=== PATIENT | female | born 1960 | race Caucasian/White ===

== ENCOUNTER → 2021-05-09 | Outpatient (CLI) | payer BC ==
--- NOTE | 2021-05-09 13:28 | CT ---
EXAMINATION TYPE: CT chest wo con DATE OF EXAM: 05/09/2021 COMPARISON: None HISTORY: 60-year-old female M31.31, R04.89, Granulomatosis with polyangiitis with renal involvement. Diffuse pulmonary alveolar hemorrhage. TECHNIQUE: Contiguous axial scanning of the chest without IV contrast. Coronal and sagittal reconstru ctions performed. CT DLP: 236.5 mGycm Automated exposure control for dose reduction was used. FINDINGS: Abnormal 3.2 cm low-density nodule left lobe of the thyroid gland. Dedicated thyroid ultrasound recom mended to better characterize indeterminate and need for subsequent biopsy. Heart normal size with trace anterior pericardial fluid measuring 4 mm thick. Mild proximal LAD coron mark anthony artery calcifications. Mildly ectatic ascending aorta 3.6 cm. Conventional arch vessel branching anatomy. Scattered nonenlarged mediastinal lymph nodes. No thoracic lymphadenopathy by CT size criteria. Some strandy scarring at the right apex and medial right upper lobe. Some mild nodularity basilar rig ht lower lobe, axial image 47. Mild patchy density just some associated architectural distortion post erior left base, axial image 46 suggesting scarring. Otherwise, no consolidation or pleural effusion. Calcified granuloma inferior lingula. No abnormal tracheal thickening seen. Small hiatal hernia. Visualized upper abdomen otherwise shows no gross abnormalities. Bones: Severe vertebral compression collapse of T6 with complete loss of anterior height. No retropul uriah into the ventral spinal canal. Slight dextroconvex scoliotic curvature as a result. IMPRESSION: 1. RETICULONODULAR INTERSTITIAL INFILTRATE AT THE RIGHT LUNG BASE LIKELY MANIFESTATION OF PATIENT'S K NOWN GERMAIN'S. 2. PATCHY OPACITY AT THE POSTERIOR LEFT BASE SHOWS SOME ASSOCIATED ARCHITECTURAL DISTORTION SUGGESTIN G CHRONIC SCARRING RATHER THAN ACUTE GRANULOMATOUS CONSOLIDATION. SOME ADDITIONAL STRANDY SCARRING ME DIAL RIGHT UPPER LOBE. 3. OTHERWISE, NO OTHER INFLAMMATORY CONSOLIDATION, EVIDENCE OF ALVEOLAR HEMORRHAGE, OR CAVITARY LESIO NS. 4. ABNORMAL 3.2 CM LEFT THYROID LOBE NODULE. RECOMMEND DEDICATED THYROID ULTRASOUND TO DETERMINE THE NEED FOR SUBSEQUENT BIOPSY. 5. SEVERE T6 VERTEBRAL COMPRESSION FRACTURE, SUSPECTED CHRONIC. CLINICALLY CORRELATE.
== END | disposition home or self-care (01) ==
LOC: RADCTMAIN 12:13
PROVIDERS: ATTEND Internal Medicine Rheumatology
DX: R91.8 Other nonspecific abnormal finding of lung field (principal)
CPT/HCPCS: 71250

== ENCOUNTER → 2024-06-17 | Outpatient (CLI) | payer OTHER ==
--- NOTE | 2024-07-12 20:18 | CT ---
Patient: Allyn Parsons Ordering Physician: Unknown, Unknown ID: [id number] Phone, Pager: Phone: N/A Pager: N/A : 1960 Age/Gender: 63Y, F Primary Location: N/A Procedure: CT Angio Chest Study D ate: 06/17/2024 2:27:00 PM EXAMINATION TYPE: CT chest without contrast. CT angiogram chest. CT DLP: 514 mGycm, Automated exposure control for dose reduction was used. DATE OF EXAM: 06/25/2024 9:12 AM COMPARISON:05/09/2021 CLINICAL INDICATION: Coronary artery disease, shortness of breath TECHNIQUE/CONTRAST: CTA scan of the thorax is performed without and with IV Contrast, patient injected with 100 mL of Iso polina 370, MIP images are created and reviewed these are created on a separate workstation.. FINDINGS: Lungs/Pleura: No evidence of focal consolidation, pleural effusion or pneumothorax. Airway: Large airways are patent. Heart: Heart is within normal limits for size. Atherosclerosis of the arterial vasculature. Vasculature: No evidence for intramural hematoma on noncontrast imaging. No evidence of intimal flap to suggest dissection. No aneurysm identified. Scattered atherosclerotic disease. Exam nondiagnostic for pulmonary embolus. Mediastinum: No gross evidence of adenopathy. Small hiatal hernia. Musculoskeletal: Mild degenerative disc disease changes are present throughout the thoracolumbar spin e. Wedge compression deformity of the T6 vertebral body with complete height loss anteriorly. Soft Tissues/lymph nodes: Unremarkable. Lower neck: No significant findings. Left thyroid nodule measuring 31 x 25 mm Upper Abdomen: No significant findings. IMPRESSION: 1. Scattered tree-in-bud opacities in the right lower lung is stable from 05/09/2021. No new infectiou s process within the visualized. Enlarging pulmonary nodules. 2. No evidence of aneurysm or dissection. 3. Mild coronary artery atherosclerosis. 4. Left thyroid nodule stable from 05/09/2021, if not already performed a thyroid ultrasound is recomm ended for complete evaluation. 5. Small hiatal hernia. 6. Chronic wedge compression deformity of T6 with complete height loss anteriorly is similar to 202 .
--- NOTE | 2024-07-18 13:09 | CA ---
Transthoracic Echo Report Name: Allyn Parsons Age: 63 Gender: F : 1960 Exam Date: 06/17/2024 14:41 Exam Location: [facility] Ht (in): 68 Wt (lb): 178 Ordering Physician: Attending/Referring Phys: [employer] Manager Linda Dobson RDCS Procedure CPT: Indications: Cardiac Hx: Technical Quality: Good Contrast 1: Total Dose (mL): Contrast 2: Total Dose (mL): MEASUREMENTS (Male / Female) Normal Values 2D ECHO LV Diastolic Diameter PLAX 4.6 cm 4.2 - 5.9 / 3.9 - 5.3 cm LV Systolic Diameter PLAX 3.0 cm IVS Diastolic Thickness 1.0 cm 0.6 - 1.0 / 0.6 - 0.9 cm LVPW Diastolic Thickness 1.0 cm 0.6 - 1.0 / 0.6 - 0.9 cm LV Relative Wall Thickness 0.4 RV Internal Dim ED PLAX 3.6 cm LA Systolic Diameter LX 3.5 cm 3.0 - 4.0 / 2.7 - 3.8 cm LV Diastolic Volume MOD 4C 86.7 cm??? LV Systolic Volume MOD 4C 35.1 cm??? LV Ejection Fraction MOD 4C 59.5 % LV Cardiac Index MOD 4C 1818.7 cm???/min???m??? LV Diastolic Length 4C 8.9 cm LV Systolic Length 4C 7.0 cm LV Diastolic Volume MOD 2C 111.0 cm??? LV Systolic Volume MOD 2C 37.3 cm??? LV Ejection Fraction MOD 2C 66.4 % LV Cardiac Index MOD 2C 2600.6 cm???/min???m??? LV Diastolic Length 2C 9.0 cm LV Systolic Length 2C 7.1 cm LA Volume 68.8 cm??? 18 - 58 / 22 - 52 cm??? LA Volume Index 34.7 cm???/m??? 16 - 28 cm???/m??? M-MODE Aortic Root Diameter MM 3.1 cm AV Cusp Separation MM 2.1 cm DOPPLER AV Peak Velocity 146.5 cm/s AV Peak Gradient 8.6 mmHg MV Area PHT 2.5 cm??? Mitral E Point Velocity 93.4 cm/s Mitral A Point Velocity 103.6 cm/s Mitral E to A Ratio 0.9 MV Deceleration Time 298.5 ms TR Peak Velocity 231.7 cm/s TR Peak Gradient 21.5 mmHg Right Ventricular Systolic Press 26.4 mmHg FINDINGS Left Ventricle Left ventricular ejection fraction is estimated at 55-60 %. Left ventricular cavity size normal. Left ventricular wall thickness normal. No obvious regional wall motion abnormalities. Right Ventricle Mild right ventricular dilatation. Right ventricular systolic pressure within normal limits. Right Atrium Normal right atrial size. No right atrial thrombus or mass seen. Left Atrium Mildly increased left atrial volume. Mildly increased left atrial area. Mitral Valve Structurally normal mitral valve. Mild mitral regurgitation. Aortic Valve Trileaflet aortic valve. No aortic valve stenosis or regurgitation. Tricuspid Valve Structurally normal tricuspid valve. Mild tricuspid regurgitation. Pulmonic Valve Structurally normal pulmonic valve. Trace pulmonic regurgitation. Pericardium No pericardial or pleural effusion. Aorta Normal size aortic root and proximal ascending aorta. CONCLUSIONS Left ventricular ejection fraction is estimated at 55-60 %. No obvious regional wall motion abnormalities. Mild RV dilatation. Normal LV systolic function. Normal RVSP Mild MR. Mildly left atrial dilatation No other significant valvular dysfunction Previewed by: Dr John Wilkins (Electronically Signed) Final Date: 18 June 2024 10:16
== END | disposition home or self-care (01) ==
LOC: RADECHMAIN 14:00
PROVIDERS: ATTEND Internal Medicine Pulmonary Disease
DX: M48.54XA Collapsed vertebra, not elsewhere classified, thoracic region, initial encounter for fracture (principal); K44.9 Diaphragmatic hernia without obstruction or gangrene; I25.10 Atherosclerotic heart disease of native coronary artery without angina pectoris; I51.7 Cardiomegaly
CPT/HCPCS: 93306; 71275; Q9967